=== PATIENT | male | born 1955 | race Hispanic/Latino ===

== ENCOUNTER 2018-07-24 08:15 | Day surgery (SDC) | payer BC, OTHER ==
[2018-07-24] MEDS ORDERED: Lactated Ringer's 500 ML IV ONE (08:29)
[2018-07-24 08:43] VITALS: BMI 33.7
[2018-07-24 08:46] VITALS: TEMP 98
[2018-07-24 09:43] VITALS: BP 106/72; PULSE 71; RESP 16; O2SAT 95
== END 2018-07-24 12:14 | disposition home or self-care (01) ==
LOC: H.ENDO 08:15
PROVIDERS: ATTEND Internal Medicine Gastroenterology
DX: Z12.11 Encounter for screening for malignant neoplasm of colon (principal); K63.5 Polyp of colon; E11.9 Type 2 diabetes mellitus without complications; E78.5 Hyperlipidemia, unspecified; I10 Essential (primary) hypertension; I25.2 Old myocardial infarction; K21.9 Gastro-esophageal reflux disease without esophagitis; K64.1 Second degree hemorrhoids; D12.4 Benign neoplasm of descending colon; K22.8 Other specified diseases of esophagus; K44.9 Diaphragmatic hernia without obstruction or gangrene; K31.89 Other diseases of stomach and duodenum
CPT/HCPCS: 43239; 45380; 88305; J7120